=== PATIENT | male | born 1945 | race Caucasian/White ===

== ENCOUNTER 2016-04-20 19:41 | Emergency (ER) | payer MEDICARE, OTHER ==
--- NOTE | 2016-04-22 16:15 | ER ---
DATE SEEN: 04/20/2016 TIME SEEN: The patient was seen at 2000 hours. CHIEF COMPLAINT: Hematuria. HISTORY OF PRESENT ILLNESS: This is a 70-year-old , retired patient with prostatism, had prostate surgery, resection, robotic surgery at [facility] on 02/27/2016. His catheter was removed on March 08. He has had intermittent pink urine, more notable 3/, 2, 3, 4 and he is concerned about this increased red discoloration of his urine. No clots are noted. He continues to use Kegel muscle exercises, and is without fever, but has mild dysuria. FAMILY HISTORY: Father of CVA. Mother of heart failure and diabetes. One sister had colon cancer. One had thyroid cancer. One brother had CABG at age 42. The patient drinks a beer a day, sometimes 3 to 4 beers per day. Smoked several years ago, no longer smokes. He has had previous hernia surgery, umbilical hernia, left x2 and right x1. REVIEW OF SYSTEMS: Negative. He has also had back surgery. He has bilateral total knee surgery. Left knee required 5 different operations including aspiration, scraping, open wound, healing by secondary intention, staph infection, and skin grafting. The last surgery was performed in September 2015. He has chronic low back pain. 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 Five days ago, he saw Dr. Dallas, he was stable. He has mild right hip discomfort. He has had physical therapy for his lower back pain and this has minimally helped to diminish his lower back pain. MEDICATIONS: 1. Fluticasone (Flonase). 2. Meloxicam. 3. Omeprazole. 4. Baby aspirin daily. 5. Hydrochlorothiazide. 6. Simvastatin. 7. Losartan potassium 100 mg. ALLERGIES: None. PHYSICAL EXAMINATION: VITAL SIGNS: Blood pressure 144/81, heart rate 103, respirations 18, oxygen saturation 94%, temperature is 36.2 degrees centigrade. GENERAL: This is an overweight male in no acute distress. He is attended by his . HEENT: PERRLA intact. Pharynx without abnormality. NECK: Supple. No thyromegaly or masses in neck. LUNGS: Clear to auscultation without rales or rhonchi. HEART: S1, S2. No irregular rate and rhythm. ABDOMEN: Soft, mild suprapubic discomfort. Periumbilical linear incision of robotic surgery healing with minimal discomfort and induration. No erythema. Other trocar sites noted and clean without erythema, redness, or tenderness. Penis normal appearance. No blood noted. Testes bilaterally descended. RECTAL: Not performed. EXTREMITIES: Lower extremities without edema. ASSESSMENT: The patient has microhematuria, which is understandable postoperatively. The patient is to decrease his activities, stresses, and working and lifting. He does not have a fever. No suggestion of infection. I did not perform a urinalysis. PLAN: Treat the dysuria with Pyridium 100 mg t.i.d., 6 tablets with 1 refill noted. Follow up with his doctors this following week if there is dark extensive red blood. The patient is undergoing a healing process. Still has incontinence intermittently. DIAGNOSES: 1. Prostatism. 2. Status post prostatectomy with hematuria. 3. Ethanolism. 4. Mild incisional robotic surgery pain. 5. Hypertension. 6. Dyslipidemia. 7. Chronic obstructive pulmonary disease, mild. 8. Frequent ethanol ingestion. /[id number] GAYATRI/KOSTAL
== END 2016-04-20 21:00 | disposition home or self-care (01) ==
LOC: FB.ED 19:41
CPT/HCPCS: 99283

== ENCOUNTER 2019-12-29 07:07 | Emergency (ER) | payer MEDICARE, OTHER ==
[2019-12-29] MEDS: Sodium Chloride 0.9% 10 ML Syringe FLUSH PRN ×2 (07:11→07:22)
[2019-12-29] MEDS ORDERED: Naloxone 0.4 MG/ML SDV ONE (07:20)
[2019-12-29] MEDS ORDERED: Naloxone 0.4 MG/ML SDV IVPUSH STA (07:21)
[2019-12-29] MEDS ORDERED: Meclizine 25 MG Tab PO STA (07:29)
[2019-12-29] MEDS ORDERED: Sodium Chloride 0.9% 1,000 ML IV SCH ×2 (07:30→11:45)
[2019-12-29] MEDS ORDERED: Meclizine 25 MG Tab ONE (07:30)
[2019-12-29 07:48] VITALS: BP 132/98; PULSE 54
[2019-12-29] MEDS ORDERED: Potassium Chloride 20 MEQ Tab.ER PO ONE (07:53)
[2019-12-29] MEDS ORDERED: Ketorolac 30 MG/ML SDV IVPUSH ONE (07:54)
[2019-12-29] MEDS ORDERED: Scopolamine 1.5 MG Transdermal Patch TOP ONE (09:19)
--- NOTE | 2019-12-29 10:16 | EDM.PDOC ---
ED HPI GENERAL MEDICAL PROBLEM - General Chief Complaint: Neuro Symptoms/Deficits Stated Complaint: RAPID RESPONSE Time Seen by Provider: 12/29/19 07:20 Source of Information: Reports: Patient, Family History Limitations: Reports: No Limitations - History of Present Illness INITIAL COMMENTS - FREE TEXT/NARRATIVE: Patient presented to the ED because of sudden onset of vertigo and slurred speech when he was in the bathroom at about 0545 today. He denies any headache although he has neck pain but no neck stiffness. There is no double of blurry vision, weakness or lost of sensation of the arms and legs. Denies any nausea/vomiting. 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 - Related Data Allergies Allergy/AdvReac Type Severity Reaction Status Date / Time No Known Allergies Allergy Verified 04/20/16 20:07 Home Meds: Home Meds Fluticasone Propionate [Flonase Allergy Relief] 2 sprays NASBOTH DAILY 04/20/16 [History] Hydrochlorothiazide 25 mg PO DAILY 04/20/16 [History] Losartan Potassium [Cozaar] 100 mg PO DAILY 04/20/16 [History] Omeprazole 40 mg PO DAILY 04/20/16 [History] Simvastatin [Zocor] 40 mg PO DAILY 04/20/16 [History] Cyclobenzaprine [Flexeril] 10 mg PO BID 12/29/19 [History] Hydrocodone/Acetaminophen [[place] 5-325 Tablet] 2 tab Q6H PRN 12/29/19 [History] Past Medical History - Past Health History Medical/Surgical History: Denies Medical/Surgical History HEENT History: Reports: Impaired Vision Other HEENT History: wears glasses Cardiovascular History: Reports: High Cholesterol, Hypertension Gastrointestinal History: Reports: Hiatal Hernia Genitourinary History: Reports: Other (See Below) Other Genitourinary History: hx prostate CA Musculoskeletal History: Reports: Arthritis, Back Pain, Chronic, Neck Pain, Chronic Neurological History: Reports: None, Neuropathy, Peripheral Endocrine/Metabolic History: Reports: Obesity/BMI 30+ Hematologic History: Reports: Anemia, Blood Transfusion(s) Oncologic (Cancer) History: Reports: Prostate - Infectious Disease History Infectious Disease History: Reports: Chicken Pox - Past Surgical History HEENT Surgical History: Reports: None GI Surgical History: Reports: Colonoscopy, EGD, Hernia Repair/Other Male Surgical History: Reports: Prostatectomy Neurological Surgical History: Reports: C-Spine, Lumbar Spine, Spinal Fusion, Other (See Below) Other Neurological Surgeries/Procedures: neck surgery, spinal fusion SI joint Musculoskeletal Surgical History: Reports: Knee Replacement Other Musculoskeletal Surgeries/Procedures:: bilat knee replacements Oncologic Surgical History: Reports: Other (See Below) Other Oncologic Surgeries/Procedures: prostate removed Dermatological Surgical History: Reports: Skin Graft Social & Family History - Family History Family Medical History: No Pertinent Family History - Tobacco Use Tobacco Use Status *Q: Former Tobacco User Used Tobacco, but Quit: Yes Month/Year Tobacco Last Used: feb - Caffeine Use Caffeine Use: Reports: Coffee - Recreational Drug Use Recreational Drug Use: No ED ROS GENERAL - Review of Systems Review Of Systems: See Below Constitutional: Reports: No Symptoms HEENT: Reports: No Symptoms Respiratory: Reports: No Symptoms Cardiovascular: Reports: No Symptoms Endocrine: Reports: No Symptoms GI/Abdominal: Reports: No Symptoms : Reports: No Symptoms Musculoskeletal: Reports: No Symptoms Skin: Reports: No Symptoms Neurological: Reports: Dizziness, Change in Speech Psychiatric: Reports: No Symptoms ED EXAM, NEURO - Physical Exam Exam: See Below Exam Limited By: No Limitations General Appearance: Lethargic Eye Exam: Bilateral Eye: PERRL Ears: Normal External Exam, Normal Canal Nose: Normal Inspection, Normal Mucosa Throat/Mouth: Normal Inspection, Normal Lips, Normal Teeth Head Exam: Atraumatic, Normocephalic Neck: Normal Inspection, Supple, Non-Tender Respiratory/Chest: No Respiratory Distress, Lungs Clear, Normal Breath Sounds Cardiovascular: Normal Peripheral Pulses, Regular Rate, Rhythm, No Edema GI/Abdominal: Normal Bowel Sounds, Soft, Non-Tender Neurological: Alert, Normal Mood/Affect, Normal Dorsiflexion, CN II-XII Intact Extremities: Normal Inspection, Normal Range of Motion Psychiatric: Normal Affect Skin Exam: Warm, Dry, Intact Course - Vital Signs Text/Narrative:: Labs/EKG/Head CT/MRI/MRA Brain and Neck result was discussed with patient and his ASA 324 mg was given by prior to ED visit Neuro Consult with Dr Corey Hernández Recorded V/S: Last Vital Signs Temp 36.3 C 12/29/19 07:17 Pulse 54 L 12/29/19 07:17 Resp 20 12/29/19 07:17 BP 132/98 H 12/29/19 07:17 Pulse Ox 98 12/29/19 07:30 - Orders/Labs/Meds Orders: Active Orders 24 hr Category Date Time Status EKG Documentation Completion [RC] ASDIRECTED Care 12/29/19 07:20 Active Oxygen Therapy Adult [Oxygen Therapy, ED] [RC] Care 12/29/19 07:10 Active ASDIRECTED Ang Neck w Cont [MR] Stat Exams 12/29/19 09:15 Taken Brain w wo Cont [MR] Stat Exams 12/29/19 09:15 Taken Head wo Cont [CT] Stat Exams 12/29/19 07:19 Taken Potassium Chloride [KCL 20 MEQ in Water 100 ML] 20 meq Med 12/29/19 11:22 Active Premix Bag 1 bag IV ONETIME Sodium Chloride 0.9% [Normal Saline] 1,000 ml Med 12/29/19 07:30 Active IV ASDIRECTED Sodium Chloride 0.9% [Normal Saline] 1,000 ml Med 12/29/19 11:45 Active IV ASDIRECTED Sodium Chloride 0.9% [Saline Flush] Med 12/29/19 07:18 Active 10 ml FLUSH ASDIRECTED PRN Saline Lock Insert [OM.PC] Routine Oth 12/29/19 07:18 Ordered EKG 12 Lead [EK] Routine Ther 12/29/19 07:19 Ordered Medication Orders Sodium Chloride (Normal Saline) 1,000 mls @ 999 mls/hr IV ASDIRECTED CHIOMA Last Admin: 12/29/19 07:25 Dose: 999 mls/hr Documented by: RUSSEL Potassium Chloride 20 meq/ (Premix) 100 mls @ 50 mls/hr IV ONETIME ONE Stop: 12/29/19 13:21 Last Infusion: 12/29/19 12:09 Dose: 50 mls/hr Documented by: Admin: 12/29/19 11:36 Dose: 50 mls/hr Documented by: RUSSEL Sodium Chloride (Normal Saline) 1,000 mls @ 100 mls/hr IV ASDIRECTED CHIOMA Last Admin: 12/29/19 11:36 Dose: 100 mls/hr Documented by: RUSSEL Sodium Chloride (Saline Flush) 10 ml FLUSH ASDIRECTED PRN PRN Reason: Keep Vein Open Last Admin: 12/29/19 07:22 Dose: 10 ml Documented by: Admin: 12/29/19 07:11 Dose: 10 ml Documented by: RUSSEL Labs: Laboratory Tests 12/29/19 12/29/19 12/29/19 Range/Units 07:15 07:15 07:15 WBC 6.3 (4.5-12.0) X10-3/uL RBC 4.56 (4.30-5.75) x10(6)uL Hgb 14.4 (13.5-17.8) g/dL Hct 43.0 (30.0-51.3) % MCV 94.3 (80-96) fL MCH 31.5 (27.7-33.6) pg MCHC 33.4 (32.2-35.4) g/dL RDW 11.7 (11.5-15.5) % Plt Count 187 (125-369) X10(3)uL MPV 7.0 L (7.4-10.4) fL Neut % (Auto) 60.8 (46-82) % Lymph % (Auto) 27.5 (13-37) % [place] % (Auto) 8.6 (4-12) % Eos % (Auto) 2 (1.0-5.0) % Baso % (Auto) 1 (0-2) % Neut # (Auto) 3.9 (1.6-8.3) # Lymph # (Auto) 1.7 (0.6-5.0) # [place] # (Auto) 0.5 (0.0-1.3) # Eos # (Auto) 0.1 (0.0-0.8) # Baso # (Auto) 0.1 (0.0-0.2) # PT 10.7 (9.0-11.1) sec INR 0.99 L (1.00-1.24) APTT 21.5 L (24.4-33.2) SECONDS D-Dimer, Quantitative (0.0-0.59) mg/LFEU Sodium 137 (135-145) mmol/L Potassium 3.3 L (3.5-5.3) mmol/L Chloride 99 L (100-110) mmol/L Carbon Dioxide 25 (21-32) mmol/L BUN 17 (7-18) mg/dL Creatinine 1.1 (0.70-1.30) mg/dL Est Cr Clr Drug Dosing TNP Estimated GFR (MDRD) > 60 (>60) BUN/Creatinine Ratio 15.5 (9-20) Glucose 150 H (80-116) mg/dL Calcium 9.7 (8.6-10.2) mg/dL Total Bilirubin 0.6 (0.1-1.3) mg/dL AST 28 H (5-25) IU/L ALT 31 (12-36) U/L Alkaline Phosphatase 70 (56-112) IU/L Troponin I (4.0-60.3) pg/mL Total Protein 7.3 (6.0-8.0) g/dL Albumin 3.8 (3.2-4.6) g/dL Globulin 3.5 g/dL Albumin/Globulin Ratio 1.1 12/29/19 12/29/19 Range/Units 07:15 07:15 WBC (4.5-12.0) X10-3/uL RBC (4.30-5.75) x10(6)uL Hgb (13.5-17.8) g/dL Hct (30.0-51.3) % MCV (80-96) fL MCH (27.7-33.6) pg MCHC (32.2-35.4) g/dL RDW (11.5-15.5) % Plt Count (125-369) X10(3)uL MPV (7.4-10.4) fL Neut % (Auto) (46-82) % Lymph % (Auto) (13-37) % [place] % (Auto) (4-12) % Eos % (Auto) (1.0-5.0) % Baso % (Auto) (0-2) % Neut # (Auto) (1.6-8.3) # Lymph # (Auto) (0.6-5.0) # [place] # (Auto) (0.0-1.3) # Eos # (Auto) (0.0-0.8) # Baso # (Auto) (0.0-0.2) # PT (9.0-11.1) sec INR (1.00-1.24) APTT (24.4-33.2) SECONDS D-Dimer, Quantitative 2.48 H (0.0-0.59) mg/LFEU Sodium (135-145) mmol/L Potassium (3.5-5.3) mmol/L Chloride (100-110) mmol/L Carbon Dioxide (21-32) mmol/L BUN (7-18) mg/dL Creatinine (0.70-1.30) mg/dL Est Cr Clr Drug Dosing Estimated GFR (MDRD) (>60) BUN/Creatinine Ratio (9-20) Glucose (80-116) mg/dL Calcium (8.6-10.2) mg/dL Total Bilirubin (0.1-1.3) mg/dL AST (5-25) IU/L ALT (12-36) U/L Alkaline Phosphatase (56-112) IU/L Troponin I 8.6 (4.0-60.3) pg/mL Total Protein (6.0-8.0) g/dL Albumin (3.2-4.6) g/dL Globulin g/dL Albumin/Globulin Ratio Meds: Medications Generic Name Dose Route Start Last Admin Trade Name Freq PRN Reason Stop Dose Admin Sodium Chloride 1,000 mls @ 999 mls/hr 12/29/19 07:30 12/29/19 07:25 Normal Saline IV 999 mls/hr ASDIRECTED CHIOMA Administration Potassium Chloride 20 meq/ 100 mls @ 50 mls/hr 12/29/19 11:22 12/29/19 12:09 Premix IV 12/29/19 13:21 50 mls/hr ONETIME ONE Infusion Sodium Chloride 1,000 mls @ 100 mls/hr 12/29/19 11:45 12/29/19 11:36 Normal Saline IV 100 mls/hr ASDIRECTED CHIOMA Administration Sodium Chloride 10 ml 12/29/19 07:18 12/29/19 07:22 Saline Flush FLUSH 10 ml ASDIRECTED PRN Administration Keep Vein Open Discontinued Medications Generic Name Dose Route Start Last Admin Trade Name Freq PRN Reason Stop Dose Admin Gadoteridol 20 ml 12/29/19 10:25 Prohance IV 12/29/19 10:26 . DIRECTED ONE Ketorolac Tromethamine 15 mg 12/29/19 07:54 12/29/19 07:59 Toradol IVPUSH 12/29/19 07:55 15 mg ONETIME ONE Administration Meclizine HCl 50 mg 12/29/19 07:29 12/29/19 11:21 Antivert PO 12/29/19 07:30 Not Given NOW STA Meclizine HCl Confirm 12/29/19 07:30 12/29/19 11:13 Antivert Administered 12/29/19 07:31 Not Given Dose 50 mg .ROUTE .STK-MED ONE Naloxone HCl 0.4 mg 12/29/19 07:21 12/29/19 07:22 Narcan IVPUSH 12/29/19 07:22 0.4 mg NOW STA Administration Naloxone HCl Confirm 12/29/19 07:20 12/29/19 11:12 Narcan Administered 12/29/19 07:21 Not Given Dose 0.4 mg .ROUTE .STK-MED ONE Potassium Chloride 40 meq 12/29/19 07:53 12/29/19 11:21 Klor-Con M20 PO 12/29/19 07:54 Not Given ONETIME ONE Scopolamine 1.5 mg 12/29/19 09:19 12/29/19 11:06 Transderm-Scop TOP 12/29/19 09:20 1.5 mg ONETIME ONE Administration Departure - Departure Time of Disposition: 10:20 Disposition: DC/Tfer to Acute Hospital 02 Condition: Good Clinical Impression: Brainstem infarct, acute - Discharge Information Referrals: Sharan Celis MD [Primary Care Provider] - Forms: ED Department Discharge Sepsis Event Note (ED) - Evaluation Sepsis Screening Result: No Definite Risk - Focused Exam Vital Signs: Vital Signs Temp Pulse Resp BP Pulse Ox Pulse Ox 12/29/19 07:30 98 12/29/19 07:17 36.3 C 54 L 20 132/98 H 87 L 12/29/19 07:10 87 L - My Orders Last 24 Hours: My Active Orders 12/29/19 07:10 Oxygen Therapy Adult [Oxygen Therapy, ED] [RC] ASDIRECTED 12/29/19 07:18 Sodium Chloride 0.9% [Saline Flush] 10 ml FLUSH ASDIRECTED PRN Saline Lock Insert [OM.PC] Routine 12/29/19 07:19 Head wo Cont [CT] Stat EKG 12 Lead [EK] Routine 12/29/19 07:20 EKG Documentation Completion [RC] ASDIRECTED 12/29/19 07:30 Sodium Chloride 0.9% [Normal Saline] 1,000 ml IV ASDIRECTED 12/29/19 09:15 Ang Neck w Cont [MR] Stat Brain w wo Cont [MR] Stat 12/29/19 11:22 Potassium Chloride [KCL 20 MEQ in Water 100 ML] 20 meq Premix Bag 1 bag IV ONETIME 12/29/19 11:45 Sodium Chloride 0.9% [Normal Saline] 1,000 ml IV ASDIRECTED - Assessment/Plan Last 24 Hours: My Active Orders 12/29/19 07:10 Oxygen Therapy Adult [Oxygen Therapy, ED] [RC] ASDIRECTED 12/29/19 07:18 Sodium Chloride 0.9% [Saline Flush] 10 ml FLUSH ASDIRECTED PRN Saline Lock Insert [OM.PC] Routine 12/29/19 07:19 Head wo Cont [CT] Stat EKG 12 Lead [EK] Routine 12/29/19 07:20 EKG Documentation Completion [RC] ASDIRECTED 12/29/19 07:30 Sodium Chloride 0.9% [Normal Saline] 1,000 ml IV ASDIRECTED 12/29/19 09:15 Ang Neck w Cont [MR] Stat Brain w wo Cont [MR] Stat 12/29/19 11:22 Potassium Chloride [KCL 20 MEQ in Water 100 ML] 20 meq Premix Bag 1 bag IV ONETIME 12/29/19 11:45 Sodium Chloride 0.9% [Normal Saline] 1,000 ml IV ASDIRECTED
--- NOTE | 2019-12-29 10:17 | CR ---
INDICATION: Altered level of consciousness, lethargic, slow to respond, dizzy. CHEST ONE VIEW: An AP upright view of the chest was obtained portable 12/29/19 - no comparison. The heart appears somewhat enlarged, but is emphasized by poor inspiration and AP positioning. The aorta is tortuous with calcification in the arch. Overlying EKG leads are noted. The left costophrenic angle is not clearly delineated raising question of minimal pleural effusion or possibly atelectasis in that area. No definite area of pneumonia was identified. No significant size pleural effusion is suggested. Overlying EKG leads are noted. IMPRESSION: 1. ASHD. 2. No definite process, but difficult to exclude minimal pleural fluid at the left costophrenic angle. MTDD
[2019-12-29] MEDS ORDERED: Gadoteridol 279.3 MG/ML 20 ML SDV IV ONE (10:25)
[2019-12-29] MEDS ORDERED: Potassium Chloride 20 MEQ in Premix Bag 1 BAG IV ONE (11:22)
[2019-12-29] MEDS ORDERED: Ondansetron 4 MG/2 ML SDV IVPUSH ONE (13:04)
[2019-12-29] MEDS ORDERED: Morphine 2 MG/ML SYRINGE IVPUSH ONE (13:04)
== END 2019-12-29 13:05 ==
LOC: FB.ED 07:07
DX: I63.9 Cerebral infarction, unspecified (principal); E78.00 Pure hypercholesterolemia, unspecified; I10 Essential (primary) hypertension; G62.9 Polyneuropathy, unspecified; E66.9 Obesity, unspecified; Z87.891 Personal history of nicotine dependence; Z68.32 Body mass index [BMI] 32.0-32.9, adult; Z79.899 Other long term (current) drug therapy
CPT/HCPCS: 36415; 70450; 70548; 70553; 71045; 80053; 84484; 85025; 85379; 85610; 85730; 93005; 96365; 96375; 99285; A9270; A9579; J1885; J2270; J2310; J2405; J3480; J7030